=== PATIENT | female | born 1955 | race Caucasian/White ===

== ENCOUNTER → 2016-11-23 | Outpatient (CLI) | payer OTHER ==
[2016-11-23 10:05] LABS: CREATININE 0.84 mg/dL (0.60-1.30); GLOMERULAR FILTR. RATE CALC > 60 mL/min (>60)
[2016-11-23 10:12] LABS: HEMOGLOBIN A1C 7.6 % (4.5-6.2)
== END | disposition home or self-care (01) ==
LOC: LABPV 07:12
PROVIDERS: ATTEND Physician Assistant
DX: E11.65 Type 2 diabetes mellitus with hyperglycemia (principal)
CPT/HCPCS: 82565; 83036

== ENCOUNTER 2016-12-15 05:51 | Day surgery (SDC) | payer OTHER ==
[~2016-12-15] VITALS: Ht 165.1 cm; Wt 75.0 kg
[2016-12-15] MEDS ORDERED: RINGERS SOLUTION,LACTATED 500 ML IV ONE ×2 (06:03→06:30)
[2016-12-15] MEDS ORDERED: TROPICAMIDE 1% 2 ML OPHTHALMIC SOLUTION ONE (06:04)
[2016-12-15] MEDS ORDERED: DICLOFENAC SODIUM 0.1% 2.5 ML OPHTHALMIC SOLUTION ONE (06:04)
[2016-12-15] MEDS ORDERED: PHENYLEPHRINE HCL 2.5% 2 ML OPHTHALMIC SOLUTION ONE (06:04)
[2016-12-15] MEDS ORDERED: MOXIFLOXACIN HCL 0.5% 3 ML OPHTHALMIC SOLUTION ONE (06:04)
[2016-12-15] MEDS ORDERED: INSNOV SQ (06:27)
[2016-12-15] MEDS ORDERED: LOSA100T29 PO (06:27)
[2016-12-15] MEDS ORDERED: INSLAN SQ (06:27)
[2016-12-15] MEDS ORDERED: LIRA0.6P SQ (06:27)
[2016-12-15] MEDS ORDERED: METF500T4 PO (06:27)
[2016-12-15] MEDS ORDERED: ROSU10 PO (06:27)
[2016-12-15] MEDS ORDERED: DICLOFENAC SODIUM 0.1% 2.5 ML OPHTHALMIC SOLUTION OS ONE (06:30)
[2016-12-15] MEDS ORDERED: MOXIFLOXACIN HCL 0.5% 3 ML OPHTHALMIC SOLUTION OS ONE (06:30)
[2016-12-15] MEDS ORDERED: 0.9% SODIUM CHLORIDE 10 ML SYRINGE IVP PRN (06:30)
[2016-12-15] MEDS: TROPICAMIDE 1% 2 ML OPHTHALMIC SOLUTION OS SCH ×2 (06:59→07:06)
[2016-12-15] MEDS: PHENYLEPHRINE HCL 2.5% 2 ML OPHTHALMIC SOLUTION OS SCH ×2 (06:59→07:06)
[2016-12-15 07:12] LABS: GLUCOSE COMMENT 1 Doctor Notified; GLUCOSE,POINT OF CARE 104 MG/DL (70-110)
[2016-12-15] MEDS ORDERED: DEXAMETHASONE SOD PHOS 4 MG/ML VIAL IVP ONE (10:00)
[2016-12-15] MEDS ORDERED: HYALURONATE SODIUM 12 MG/ML 0.8 ML SYRINGE IO ONE (10:00)
[2016-12-15] MEDS ORDERED: VANCOMYCIN HCL 500 MG/VIAL IRRIG ONE (10:00)
[2016-12-15] MEDS ORDERED: POVIDONE-IODINE 10% 15 ML SOLUTION UD TP ONE (10:00)
[2016-12-15] MEDS ORDERED: HYALURONATE SOD/CHONDROITIN SOD 0.5 ML VIAL IO ONE (10:00)
[2016-12-15] MEDS ORDERED: TETRACAINE HCL/PF 0.5% 4 ML OPHTHALMIC SOLUTION OU ONE (10:00)
[2016-12-15] MEDS ORDERED: LIDOCAINE HCL/PF 1% 2 ML VIAL IARTIC ONE (10:00)
[2016-12-15] MEDS ORDERED: FentaNYL CITRATE-PF 100 MCG/2 ML VIAL IVP ONE (12:00)
[2016-12-15] MEDS ORDERED: MIDAZOLAM HCL 2 MG/2 ML VIAL IVP ONE (12:00)
[2016-12-15] MEDS ORDERED: ONDANSETRON HCL 4 MG/2 ML VIAL IVP ONE (12:00)
== END 2016-12-15 09:35 | disposition home or self-care (01) ==
LOC: SURGERY 05:51
PROVIDERS: ATTEND Specialist
DX: E11.36 Type 2 diabetes mellitus with diabetic cataract (principal); H25.012 Cortical age-related cataract, left eye; I10 Essential (primary) hypertension; E78.00 Pure hypercholesterolemia, unspecified; J45.909 Unspecified asthma, uncomplicated; E66.3 Overweight; F17.210 Nicotine dependence, cigarettes, uncomplicated; Z79.4 Long term (current) use of insulin; Z90.722 Acquired absence of ovaries, bilateral; Z90.49 Acquired absence of other specified parts of digestive tract; Z98.890 Other specified postprocedural states
CPT/HCPCS: 66984; 82962; 93005; C1780; J7120; J1100; J2250; J2405; J3010; J3370; J3490

== ENCOUNTER → 2017-06-23 | Outpatient (CLI) | payer OTHER ==
[~2017-06-23] MED LIST: INSLAN SQ; INSNOV SQ; LIRA0.6P SQ; LOSA100T29 PO; METF500T4 PO; ROSU10 PO
[2017-06-23 10:17] LABS: CREATININE 0.74 mg/dL (0.60-1.30); GLOMERULAR FILTR. RATE CALC > 60 mL/min (>60)
[2017-06-23 10:25] LABS: HEMOGLOBIN A1C 7.4 % (4.5-6.2)
== END | disposition home or self-care (01) ==
LOC: LABPV 07:03
PROVIDERS: ATTEND Physician Assistant
DX: E11.65 Type 2 diabetes mellitus with hyperglycemia (principal)
CPT/HCPCS: 82043; 82565; 82570; 83036